=== PATIENT | female | born 1960 | race Caucasian/White ===

== ENCOUNTER → 2020-07-17 | Day surgery (SDC) | payer OTHER, BC ==
--- NOTE | 2020-07-19 10:04 | PATH ---
Surgical Pathology Report Patient Name: LUCY GODOY [facility]. Rec. #: [id number] /Age/Gender: 1960 (Age: 60) / F Account: [id number] Location: [facility] Taken: 07/17/2020 Received: 07/17/2020 Reported: 07/19/2020 Physicians: Mars Ventura M.D. Specimen(s) Received A: RIGHT BREAST LESION 1, 12:00 B: RIGHT BREAST LESION 2, 8:00 Clinical History Breast lesions Breast lesion 1, 12:00, 0.4 cm enhancing mass Breast lesion 2, 8:00, clumped linear enhancement Final Diagnosis A. BREAST, RIGHT, LESION 1, 12:00, CORE BIOPSY: LOBULAR CARCINOMA IN SITU (LCIS), CLASSIC AND FOCAL PLEOMORPHIC TYPES WITH ASSOCIATED MICROCALCIFICATION. FIBROCYSTIC CHANGES INCLUDING STROMAL FIBROSIS, MICROCYSTS, SCLEROSING ADENOSIS WITH ASSOCIATED MICROCALCIFICATIONS SEE COMMENT. B. BREAST, RIGHT, LESION 2, 8:00, CORE BIOPSY: LOBULAR CARCINOMA IN SITU (LCIS), CLASSIC AND FOCAL PLEOMORPHIC TYPES WITH ASSOCIATED MICROCALCIFICATION. FIBROCYSTIC CHANGES INCLUDING STROMAL FIBROSIS, MICROCYSTS, SCLEROSING ADENOSIS, USUAL DUCTAL HYPERPLASIA, AND MICROCALCIFICATIONS. SEE COMMENT. Comment: Immunohistochemical stains performed and interpreted at [facility] show LCIS is negative for E-cadherin. P63 and SMM-HC show retained myoepithelial cells within LCIS. Findings support above diagnosis. Positive and negative controls (internal if applicable) show appropriate results. Electronically Signed Opal Barrow M.D. Gross Description A. Received in formalin labeled "right breast lesion 1," is a 3.6 x 2.8 x 0.3 cm aggregate of multiple robles-yellow, irregular to cylindrical portions of fibroadipose tissue. The formalin is filtered and the specimen is entirely submitted in 2 cassettes. B. Received in formalin labeled "right breast lesion 2," is a 3.8 x 2.8 x 0.3 cm aggregate of multiple robles-yellow, irregular to cylindrical portions of fibroadipose tissue. The formalin is filtered and the specimen is entirely submitted in 2 cassettes. Time to formalin fixation: 2 minutes Total formalin fixation time: Approximately 7 hours. DL/07/17/2020 [facility]07/17/2020
== END | disposition home or self-care (01) ==
LOC: FRADMRI 08:14 → EDSTATUS 09:00 → FRADUS-SUR 09:40
PROVIDERS: ATTEND Surgery Surgical Oncology
PROC: 0HBT3ZX Excision of Right Breast, Percutaneous Approach, Diagnostic (ICD-10-PCS; principal; 2020-07-17)
DX: D05.01 Lobular carcinoma in situ of right breast (principal); C50.912 Malignant neoplasm of unspecified site of left female breast; N64.89 Other specified disorders of breast; N60.31 Fibrosclerosis of right breast; N60.11 Diffuse cystic mastopathy of right breast; N60.21 Fibroadenosis of right breast
CPT/HCPCS: 19085; 19086; 77065-TC; 88305-TC; 88341-TC; 88342-TC; A4648; A9579; C1887